=== PATIENT | male | born 1965 ===

== ENCOUNTER 2022-04-06 08:47 | Emergency (ER) | payer OTHER ==
[~2022-04-06] VITALS: Ht 167.6 cm; Wt 74.8 kg
[~2022-04-06 08:47] MED LIST: DICLOFENAC POTA50 MG PO; NORFLEX100MG PO
[2022-04-06] MEDS ORDERED: ATORVASTATIN CA10 MG (09:15)
== END 2022-04-06 13:57 | disposition home or self-care (01) ==
LOC: ER 08:47
DX: N39.0 Urinary tract infection, site not specified (principal)